=== PATIENT | male | born 1955 | race Two or more races ===

== ENCOUNTER → 2017-07-13 | Outpatient (CLI) | payer OTHER ==
--- NOTE | 2017-07-13 10:58 | Diagnostic Imaging Report ---
PROCEDURE:X-RAY LEFT KNEE, THREE OR MORE VIEWS COMPARISON:None. INDICATIONS:LEFT KNEE PAIN FROM FALL FINDINGS: The bones are well-mineralized. There are no fractures, subluxations, lytic or blastic lesions. There is no evidence of a joint effusion. CONCLUSION: No acute radiographic abnormality. Dictated by: Navin Mcarthur M.D. on 07/13/2017 at 10:59 Electronically approved by: Navin Mcarthur M.D. on 07/13/2017 at 10:59
== END ==
LOC: RAD 09:55
PROVIDERS: ATTEND Family Medicine
DX: M25.562 Pain in left knee (principal); S80.02XA Contusion of left knee, initial encounter